=== PATIENT | female | born 1995 | race Hispanic/Latino ===

== ENCOUNTER 2017-09-16 22:44 | Emergency (ER) | payer SELFPAY ==
[~2017-09-16] VITALS: Ht 154.9 cm; Wt 72.6 kg
[2017-09-16 23:17] LABS: BILIRUBIN,URINE NEGATIVE (NEGATIVE); CLARITY,URINE SL CLOUDY (CLEAR); COLOR,URINE YELLOW (YELLOW); KETONES,URINE NEGATIVE (NEGATIVE); LEUKOCYTE ESTERASE ,URINE 1+ (NEGATIVE); NITRITE,URINE NEGATIVE (NEGATIVE); PROTEIN,URINE DIPSTICK NEGATIVE (NEGATIVE); URINE UROBILINOGEN 0.2 mg/dL (0.2 - 1)
[2017-09-16 23:19] LABS: PREGNANCY TEST, URINE NEGATIVE (NEGATIVE)
[2017-09-16 23:32] LABS: BACTERIA,URINE MANY /HPF; EPITHELIAL CELLS,URINE FEW /LPF; RBC,URINE 0-5 /HPF (0-5)
== END 2017-09-17 01:42 | disposition short-term general hospital (02) ==
LOC: ER 22:44
DX: R10.9 Unspecified abdominal pain (principal)
CPT/HCPCS: 81001; 81025; 87086